=== PATIENT | male | born 1980 | race Caucasian/White ===

== ENCOUNTER 2020-12-04 06:54 | Outpatient (NON) | payer BC, SELFPAY ==
[2020-12-04 18:18] LABS: SARS-CoV-2 RNA PCR Negative
== END 2020-12-04 06:55 ==
PROVIDERS: Visit Provider Student in an Organized Health Care Education/Training Program
DX: Z20.822 Contact with and (suspected) exposure to COVID-19 (principal); R09.89 Other specified symptoms and signs involving the circulatory and respiratory systems
CPT/HCPCS: C9803; U0003; U0005

== ENCOUNTER → 2021-11-26 10:14 | Outpatient (CLI) | payer BC, SELFPAY ==
[2021-11-27 14:36] LABS: SARS-CoV-2 RNA PCR Negative
== END ==
PROVIDERS: PCP Student in an Organized Health Care Education/Training Program; Visit Provider Student in an Organized Health Care Education/Training Program
DX: R68.89 Other general symptoms and signs (principal); Z20.822 Contact with and (suspected) exposure to COVID-19
CPT/HCPCS: C9803; U0003; U0005